=== PATIENT | female | born 1935 | race Caucasian/White ===

== ENCOUNTER 2022-01-15 12:25 | Outpatient (CLI) | payer MEDICARE | END 2022-01-15 12:26 | disposition home or self-care (01) | LOC: CT 12:25 | PROVIDERS: ATTEND Family Medicine | DX: M47.816 Spondylosis without myelopathy or radiculopathy, lumbar region (principal); M48.061 Spinal stenosis, lumbar region without neurogenic claudication; M48.07 Spinal stenosis, lumbosacral region | CPT/HCPCS: 72131 ==

== ENCOUNTER 2023-07-13 18:42 | Emergency (ER) | payer MEDICARE ==
[~2023-07-13 18:42] MED LIST: Iopamidol-370 76% 500 ML MDV (1 ML CHARGE) ONE
[2023-07-13 19:35] LABS: #Eosinphils 0.1 thou/uL (0.0-0.7); #Monocytes 0.8 thou/uL (0.11-0.59); #Neutrophils 5.4 thou/uL (1.40-6.50); %Basophils 0.4 % (0.0-1.0); %Eosinophils 1.5 % (0.0-10.0); %Lymphocytes 11.6 % (21.0-51.0); %Neutrophils 74.7 % (42.0-75.0); Mean Corpuscular HGB CONC 34.3 g/dL (32.0-36.0); Mean Corpuscular Hemoglobin 31.5 pg (27.0-31.0); Mean Corpuscular Volume 91.9 fl (78.0-98.0); Platelet Count 316 10x3/uL (130-400); RBC Distribution Width 12.6 % (11.5-14.5); Red Blood Cell (RBC) Count 3.81 mill/uL (4.20-5.40); White Blood Cell (WBC) Count 7.3 10x3/uL (4.8-10.8)
[2023-07-13] MEDS ORDERED: Morphine 4 MG/ML VIAL ONE (20:39)
[2023-07-13 21:57] LABS: Bacteria/HPF None Seen HPF (None Seen); Bilirubin Negative (Negative); Blood, Urine Negative (Negative); CAUTI Indications for Culture Pelvic or flank pain; Clarity Clear (Clear); Glucose, Urine (Dipstick) Normal (Negative); Ketone, Urine Trace mg/dL (Negative); Leukocyte Negative Leu/uL (Negative); Nitrite Negative (Negative); Protein, Urine (Dipstick) 20 mg/dL (Neg-Trace); RBC/HPF 0-3 HPF (0-3); Specific Gravity, Urine 1.026 (1.002-1.036); Squamous Epithelial None Seen HPF (0-3); Urobilinogen Normal mg/dL (Less than 2); WBC/HPF None Seen HPF (0-3)
[2023-07-13 22:02] LABS: Urine Culture Reflex No No
[2023-07-13 22:14] LABS: Albumin 3.7 g/dL (3.4-4.8)
[2023-07-13 22:15] LABS: Chloride 101 mmol/L (98-107); Potassium 4.1 mmol/L (3.5-5.1); Sodium 133 mmol/L (136-145)
[2023-07-13 22:16] LABS: Calcium 8.6 mg/dL (7.8-10.44); Glucose 100 mg/dL (83-110)
[2023-07-13 22:17] LABS: Globulin 2.2 g/dL (2.4-3.5); Protein, Total 5.9 g/dL (5.8-8.1)
[2023-07-13 22:18] LABS: Bilirubin, Total 0.3 mg/dL (0.2-1.2); Carbon Dioxide 20 mmol/L (23-31)
[2023-07-13 22:19] LABS: Alkaline Phosphatase 69 U/L (40-110)
[2023-07-13 22:20] LABS: Calc. Creatinine Clearance 0 mL/min (70-130); Estimated GFR 70
[2023-07-13 22:21] LABS: BUN (Urea Nitrogen) 19 mg/dL (9.8-20.1)
[2023-07-13 22:22] LABS: AST (SGOT) 18 U/L (5-34)
[2023-07-13 22:23] LABS: ALT (SGPT) 10 U/L (8-55); Lipase 155 U/L (8-78)
[2023-07-13 22:43] LABS: Anion Gap 16 mmol/L (10-20)
== END 2023-07-13 22:53 | disposition home or self-care (01) ==
LOC: ERS 18:42
DX: M54.50 Low back pain, unspecified (principal); N83.8 Other noninflammatory disorders of ovary, fallopian tube and broad ligament; E78.5 Hyperlipidemia, unspecified; I10 Essential (primary) hypertension; Z79.899 Other long term (current) drug therapy; Z79.82 Long term (current) use of aspirin
CPT/HCPCS: 74177; 80053; 81001; 83690; 85025; 86140; 96374; J2270; Q9967

== ENCOUNTER 2024-09-07 11:51 | Outpatient (CLI) | payer MEDICARE, OTHER ==
[2024-09-07 13:45] LABS: #Basophils 0.04 10x3/uL (0.0-0.2); %Basophils 0.7 % (0.0-1.0); %Eosinophils 1.7 % (0.0-10.0); %Monocytes 11.2 % (0.0-10.0); %Neutrophils 66.1 % (42.0-75.0); Hematocrit 36.8 % (36.0-47.0); Hemoglobin 12.1 g/dL (12.0-16.0); Mean Corpuscular HGB CONC 32.9 g/dL (32.0-36.0); Mean Corpuscular Hemoglobin 30.6 pg (27.0-31.0); Mean Corpuscular Volume 92.9 fL (78.0-98.0); Mean Platelet Volume 10.7 fL (7.4-10.4); Platelet Count 254 10x3/uL (130-400); RBC Distribution Width 12.9 % (11.5-14.5); Red Blood Cell (RBC) Count 3.96 mill/uL (4.20-5.40)
[2024-09-07 14:01] LABS: Anion Gap 14 mmol/L (10-20); BUN (Urea Nitrogen) 15 mg/dL (9.8-20.1); Calc. Creatinine Clearance 0 mL/min (70-130); Calcium 9.1 mg/dL (7.8-10.44); Carbon Dioxide 24 mmol/L (23-31); Chloride 104 mmol/L (98-107); Estimated GFR 65; Glucose 72 mg/dL (83-110); Potassium 4.3 mmol/L (3.5-5.1); Sodium 138 mmol/L (136-145)
== END 2024-09-07 11:52 | disposition home or self-care (01) ==
LOC: LABBT 11:51
PROVIDERS: ATTEND Orthopaedic Surgery Hand Surgery
DX: Z01.818 Encounter for other preprocedural examination (principal); G56.03 Carpal tunnel syndrome, bilateral upper limbs
CPT/HCPCS: 80048; 85025; 93005; 93010

== ENCOUNTER 2024-09-10 06:35 | Day surgery (SDC) | payer MEDICARE, OTHER ==
[2024-09-07 12:01] VITALS: BMI 22.4
[2024-09-10] MEDS ORDERED: CEFAZOLIN 2 GM VIAL ONE (07:53)
[2024-09-10] MEDS ORDERED: PROPOFOL 20 ML ONE (08:04)
[2024-09-10] MEDS ORDERED: Ondansetron PF 4 MG/2 ML Vial ONE (08:24)
[2024-09-10] MEDS ORDERED: Lidocaine 1% PF 5 ML VIAL ONE (08:24)
== END 2024-09-10 11:23 | disposition home or self-care (01) ==
LOC: SDC 06:35
PROVIDERS: ATTEND Orthopaedic Surgery Hand Surgery
PROC: 01N50ZZ Release Median Nerve, Open Approach (ICD-10-PCS; principal; 2024-09-10)
DX: G56.01 Carpal tunnel syndrome, right upper limb (principal); I10 Essential (primary) hypertension; M19.90 Unspecified osteoarthritis, unspecified site; E78.00 Pure hypercholesterolemia, unspecified; G62.9 Polyneuropathy, unspecified; Z98.49 Cataract extraction status, unspecified eye; Z96.652 Presence of left artificial knee joint; Z79.82 Long term (current) use of aspirin; Z79.899 Other long term (current) drug therapy
CPT/HCPCS: 64721; A6223; J2405; J2704